=== PATIENT | female | born 1995 | race Two or more races ===

== ENCOUNTER 2016-07-25 17:01 | Emergency (ER) | payer SELFPAY ==
[~2016-07-25] VITALS: Ht 165.1 cm; Wt 72.0 kg
[2016-07-25 17:10] VITALS: BP 124/65
[2016-07-25] MEDS ORDERED: LIDOCAINE HCL 1% 20ML VIAL (Pyxis) INJ INFIL ONE (17:45)
== END 2016-07-25 19:00 | disposition home or self-care (01) ==
LOC: ER 18:14
DX: S01.511A Laceration without foreign body of lip, initial encounter (principal); X58.XXXA Exposure to other specified factors, initial encounter; Y93.89 Activity, other specified; Y92.9 Unspecified place or not applicable; Y99.8 Other external cause status
CPT/HCPCS: 12011; 99283; A4217; J3490; Z7610